=== PATIENT | male | born 1995 | race Caucasian/White ===

== ENCOUNTER 2017-12-31 01:44 | Inpatient (IN) | payer MEDICAID ==
[~2017-12-31] VITALS: Ht 167.6 cm; Wt 68.1 kg
[~2017-12-31 01:44] MED LIST: BLOO1EAC70 MC; FOLI1TAB16 PO; HUM7525 SQ; INSU100V36 SQ; LACT1CAP26 PO; LANC-509 TP; LANTUS SQ; LANTUS SUBCUT; MULT-1179 PO; ONDA8TAB6 PO; PANT40TA4 PO; THI100T PO; test
[2017-12-31] MEDS ORDERED: insulin glargine (Lantus) pen - multi-dose SQ ONE ×3 (02:30→21:00)
[2017-12-31 02:54] LABS: BASOPHILS % (AUTO) 0 % (0-1); EOSINOPHILS # (AUTO) 0.3 X10'3 (0-0.9); EOSINOPHILS % (AUTO) 1.4 % (0-6); HEMOGLOBIN 15.6 g/dl (14.0-17.9); LYMPHOCYTES # (AUTO) 1.7 X10'3 (1.1-4.8); LYMPHOCYTES % (AUTO) 9.4 % (21-51); MEAN CORPUSCULAR HEMOGLOBIN 28.1 PG (27.0-31.0); MEAN CORPUSCULAR HGB CONC 33.2 % (33.0-36.5); MEAN CORPUSCULAR VOLUME 84.5 FL (78-98); MEAN PLATELET VOLUME 9.5 FL (7.4-10.4); MONOCYTES # (AUTO) 0.6 X10'3 (0-0.9); MONOCYTES % (AUTO) 3.2 % (2-12); PLATELET COUNT 326 X10'3 (140-440); RED BLOOD COUNT 5.56 X10'6 (4.70-6.10); RED CELL DISTRIBUTION WIDTH 13.3 % (11.5-14.5); WHITE BLOOD COUNT 18.6 X10'3 (4.5-11.0)
[2017-12-31 03:12] LABS: ALANINE AMINOTRANSFERASE 37 U/L (12-78); ALBUMIN 4.9 G/DL (3.4-5.0); ALBUMIN/GLOBULIN RATIO 1.1 (1.1-1.5); ALKALINE PHOSPHATASE 125 IU/L (46-116); ANION GAP 24 (8-16); ASPARTATE AMINO TRANSFERASE 20 U/L (10-37); BILIRUBIN,TOTAL 1.1 MG/DL (0.1-1.0); BLOOD UREA NITROGEN 16 MG/DL (7-18); BUN/CREATININE RATIO 13.4 (5.4-32.0); CALCIUM 10.4 MG/DL (8.5-10.1); CHLORIDE 92 MMOL/L (99-107); CREATININE 1.19 MG/DL (0.60-1.10); GLUCOSE 377 MG/DL (70-104); SODIUM 132 MMOL/L (135-145); TOTAL CARBON DIOXIDE 16.3 MMOL/L (24-32); TOTAL PROTEIN 9.5 G/DL (6.4-8.2); eGFR 77 ML/MIN
[2017-12-31] MEDS ORDERED: normal saline 1000ML IV soln IVB ONE (03:30)
[2017-12-31] MEDS ORDERED: ondansetron/PF 4mg/2ml inj IV ONE ×2 (03:30→22:05)
[2017-12-31] MEDS ORDERED: insulin regular, human 10 units/0.1 ml syringe SQ ONE ×2 (03:30→05:55)
[2017-12-31] MEDS ORDERED: LANTUS SQ (04:08)
[2017-12-31 05:43] LABS: ALANINE AMINOTRANSFERASE 34 U/L (12-78); ALBUMIN 4.2 G/DL (3.4-5.0); ALBUMIN/GLOBULIN RATIO 0.9 (1.1-1.5); ALKALINE PHOSPHATASE 109 IU/L (46-116); ANION GAP 20 (8-16); ASPARTATE AMINO TRANSFERASE 16 U/L (10-37); BILIRUBIN,TOTAL 0.7 MG/DL (0.1-1.0); BLOOD UREA NITROGEN 15 MG/DL (7-18); BUN/CREATININE RATIO 14.4 (5.4-32.0); CALCIUM 8.9 MG/DL (8.5-10.1); CHLORIDE 100 MMOL/L (99-107); CREATININE 1.04 MG/DL (0.60-1.10); GLUCOSE 281 MG/DL (70-104); POTASSIUM 4.6 MMOL/L (3.5-5.1); SODIUM 137 MMOL/L (135-145); TOTAL CARBON DIOXIDE 16.8 MMOL/L (24-32); TOTAL PROTEIN 8.7 G/DL (6.4-8.2); eGFR 90 ML/MIN
[2017-12-31] MEDS ORDERED: normal saline 1000ml 1,000 ML IV ONE (05:56)
[2017-12-31] MEDS ORDERED: acetaminophen 325mg tablet PO PRN ×2 (06:25)
[2017-12-31] MEDS ORDERED: insulin regular, human vial - multi-dose SQ SCH (06:25)
[2017-12-31] MEDS ORDERED: MESSAGE TO PHARMACY PO ONE ×2 (06:25→16:05)
[2017-12-31] MEDS ORDERED: magnesium hydroxide 30ml (MOM) UD suspension PO PRN (06:25)
[2017-12-31] MEDS ORDERED: dextrose ORAL solution 15 GM/59 ML bottle PO PRN ×4 (06:25→16:05)
[2017-12-31] MEDS ORDERED: insulin Lispro (HumaLOG) vial - multi-dose SQ SCH (06:25)
[2017-12-31] MEDS ORDERED: glucagon, human recombinant 1mg kit SUBCUT PRN ×2 (06:25→16:05)
[2017-12-31] MEDS ORDERED: ondansetron/PF 4mg/2ml inj IV PRN (06:25)
[2017-12-31] MEDS ORDERED: normal saline 1000ml 1,000 ML IV SCH (06:25)
[2017-12-31] MEDS ORDERED: dextrose 50%-water 50ml dispensing syringe IV PRN ×4 (06:25→16:05)
[2017-12-31] MEDS ORDERED: mag hydrox/Alum hydrox/simeth 30ml oral suspension PO PRN (06:25)
[2017-12-31] MEDS: enoxaparin 40mg/0.4ml syringe SUBCUT SCH (07:36)
[2017-12-31] MEDS ORDERED: insulin glargine (Lantus) pen - multi-dose SQ SCH ×3 (08:00→21:00)
[2017-12-31] MEDS: ondansetron/PF 4mg/2ml inj IV PRN ×2 (08:25→19:20)
[2017-12-31 09:30] VITALS: BP 145/92
[2017-12-31] MEDS ORDERED: insulin regular, DKA only 100 UNIT in normal saline 100ml IV soln 99 ML IV SCH ×2 (09:50)
[2017-12-31] MEDS ORDERED: potassium CL 20mEq in D5-1/2NS 1,000 ML IV PRN (09:50)
[2017-12-31] MEDS ORDERED: potassium Cl 40MEQ/NS 500ml 500 ML IV PRN ×4 (09:50→09:55)
[2017-12-31] MEDS ORDERED: sodium phosphate inj. 15 MMOL in dextrose 5%-water 150 ML IV PRN (09:50)
[2017-12-31] MEDS ORDERED: potassium Cl 20 mEq SR tablet PO PRN ×4 (09:50→09:55)
[2017-12-31] MEDS ORDERED: sodium phosphate inj. 30 MMOL in dextrose 5%-water 250 ML IV PRN (09:50)
[2017-12-31] MEDS ORDERED: magnesium 4gm in 100ml NS 100 ML IV PRN (09:55)
[2017-12-31] MEDS ORDERED: magnesium 2GM in 50ml NS 50 ML IV PRN (09:55)
[2017-12-31] MEDS ORDERED: magnesium Cl slow-release 64mg tablet PO PRN (09:55)
[2017-12-31] MEDS ORDERED: CefTRIAXone/D5W-Rocephin 1gm 50 ML IV SCH (09:55)
[2017-12-31] MEDS: normal saline 1000ml 1,000 ML IV SCH ×2 (10:17→11:12)
[2017-12-31 10:31] LABS: ALBUMIN 4.2 G/DL (3.4-5.0); ANION GAP 18 (8-16); BLOOD UREA NITROGEN 13 MG/DL (7-18); BUN/CREATININE RATIO 14.9 (5.4-32.0); CALCIUM 9.4 MG/DL (8.5-10.1); CHLORIDE 101 MMOL/L (99-107); CREATININE 0.87 MG/DL (0.60-1.10); GLUCOSE 205 MG/DL (70-104); PHOSPHORUS 2.3 MG/DL (2.3-4.5); POTASSIUM 3.9 MMOL/L (3.5-5.1); SODIUM 137 MMOL/L (135-145); TOTAL CARBON DIOXIDE 17.8 MMOL/L (24-32); eGFR > 90 ML/MIN
[2017-12-31 11:00] VITALS: BP 148/95
[2017-12-31] MEDS: lisinopril 5mg tablet PO SCH (11:21)
[2017-12-31] MEDS: doxycycline hyclate 100mg tablet.DR PO SCH ×2 (11:21→17:18)
[2017-12-31] MEDS: pantoprazole 40 MG vial IV SCH (11:21)
[2017-12-31 15:00] VITALS: BP 132/78
[2017-12-31 15:01] LABS: ALBUMIN 3.9 G/DL (3.4-5.0); ANION GAP 16 (8-16); BLOOD UREA NITROGEN 11 MG/DL (7-18); BUN/CREATININE RATIO 13.1 (5.4-32.0); CHLORIDE 103 MMOL/L (99-107); CREATININE 0.84 MG/DL (0.60-1.10); GLUCOSE 183 MG/DL (70-104); PHOSPHORUS 2.2 MG/DL (2.3-4.5); POTASSIUM 4.1 MMOL/L (3.5-5.1); SODIUM 140 MMOL/L (135-145); TOTAL CARBON DIOXIDE 20.6 MMOL/L (24-32); eGFR > 90 ML/MIN
[2017-12-31] MEDS: insulin Lispro (HumaLOG) vial - multi-dose SQ SCH ×2 (16:14→18:49)
[2017-12-31] MEDS: potassium cl 20mEq in 1/2 NS 1,000 ML IV SCH (17:08)
[2017-12-31] MEDS: Neutra Phos packet PO PRN ×2 (17:19→22:15)
[2017-12-31 19:00] VITALS: BP 115/75
[2017-12-31] MEDS ORDERED: proCHLORperazine 10 MG/2 ml inj IV PRN (21:55)
[2017-12-31] MEDS ORDERED: ondansetron/PF 4mg/2ml inj IM ONE (21:55)
[2017-12-31 23:00] VITALS: BP 114/75
[2018-01-01] MEDS: potassium cl 20mEq in 1/2 NS 1,000 ML IV SCH ×2 (02:15→11:53)
[2018-01-01 03:00] VITALS: BP 123/81
[2018-01-01 05:22] LABS: BASOPHILS % (AUTO) 0.3 % (0-1); EOSINOPHILS # (AUTO) 0.2 X10'3 (0-0.9); EOSINOPHILS % (AUTO) 1.4 % (0-6); HEMATOCRIT 38.3 % (42.0-52.0); LYMPHOCYTES # (AUTO) 2.1 X10'3 (1.1-4.8); LYMPHOCYTES % (AUTO) 12.8 % (21-51); MEAN CORPUSCULAR HEMOGLOBIN 28.5 PG (27.0-31.0); MEAN CORPUSCULAR VOLUME 83.9 FL (78-98); MEAN PLATELET VOLUME 9.7 FL (7.4-10.4); MONOCYTES # (AUTO) 1.3 X10'3 (0-0.9); MONOCYTES % (AUTO) 7.8 % (2-12); NEUTROPHILS # (AUTO) 12.9 X10'3 (1.8-7.7); NEUTROPHILS % (AUTO) 77.7 % (42-75); PLATELET COUNT 254 X10'3 (140-440); RED BLOOD COUNT 4.57 X10'6 (4.70-6.10); RED CELL DISTRIBUTION WIDTH 13.3 % (11.5-14.5); WHITE BLOOD COUNT 16.6 X10'3 (4.5-11.0)
[2018-01-01 05:25] LABS: ALANINE AMINOTRANSFERASE 23 U/L (12-78); ALBUMIN 3.3 G/DL (3.4-5.0); ALKALINE PHOSPHATASE 85 IU/L (46-116); ANION GAP 10 (8-16); ASPARTATE AMINO TRANSFERASE 12 U/L (10-37); BILIRUBIN,TOTAL 0.9 MG/DL (0.1-1.0); BLOOD UREA NITROGEN 8 MG/DL (7-18); BUN/CREATININE RATIO 12.3 (5.4-32.0); CALCIUM 8.5 MG/DL (8.5-10.1); CHLORIDE 101 MMOL/L (99-107); CREATININE 0.65 MG/DL (0.60-1.10); GLUCOSE 158 MG/DL (70-104); MAGNESIUM 1.8 MG/DL (1.5-2.4); PHOSPHORUS 2.1 MG/DL (2.3-4.5); POTASSIUM 3.3 MMOL/L (3.5-5.1); SODIUM 136 MMOL/L (135-145); TOTAL CARBON DIOXIDE 24.6 MMOL/L (24-32); TOTAL PROTEIN 6.6 G/DL (6.4-8.2); eGFR > 90 ML/MIN
[2018-01-01 07:00] VITALS: BP 122/84
[2018-01-01] MEDS: lisinopril 5mg tablet PO SCH (07:20)
[2018-01-01] MEDS: pantoprazole 40 MG vial IV SCH (07:20)
[2018-01-01] MEDS: Neutra Phos packet PO PRN (07:21)
[2018-01-01] MEDS: doxycycline hyclate 100mg tablet.DR PO SCH (07:21)
[2018-01-01] MEDS: enoxaparin 40mg/0.4ml syringe SUBCUT SCH (07:29)
[2018-01-01] MEDS ORDERED: K and/or MAG REPLACEMENT MC SCH (08:00)
[2018-01-01] MEDS ORDERED: potassium phosphate inj 15 MMOL in normal saline 250ml IV soln 245 ML IV ONE (08:40)
[2018-01-01] MEDS: insulin Lispro (HumaLOG) vial - multi-dose SQ SCH ×2 (08:43→13:27)
[2018-01-01] MEDS ORDERED: NEUPHOSK PO (10:25)
[2018-01-01] MEDS ORDERED: LISI-604 PO (10:25)
[2018-01-01] MEDS ORDERED: DOXY-200 PO (10:25)
[2018-01-01] MEDS ORDERED: INSU100C10 SQ (10:25)
[2018-01-01 11:00] VITALS: BP 106/65
== END 2018-01-01 15:00 | disposition home or self-care (01) | DRG 420 ==
LOC: ER 01:45 → ED HOLD 06:25 → PCU 3S 09:28
PROVIDERS: ADMIT Internal Medicine; ATTEND Internal Medicine
DX: E10.10 Type 1 diabetes mellitus with ketoacidosis without coma (principal); E83.39 Other disorders of phosphorus metabolism; I10 Essential (primary) hypertension; E86.0 Dehydration; E87.6 Hypokalemia; K30 Functional dyspepsia; R00.0 Tachycardia, unspecified; K29.70 Gastritis, unspecified, without bleeding; F11.10 Opioid abuse, uncomplicated; J20.9 Acute bronchitis, unspecified; Z87.891 Personal history of nicotine dependence; Z88.0 Allergy status to penicillin; Z79.899 Other long term (current) drug therapy; Z91.14 Patient's other noncompliance with medication regimen; Z91.19 Patient's noncompliance with other medical treatment and regimen; Z56.0 Unemployment, unspecified
CPT/HCPCS: 36415; 80048; 80053; 82009; 82948; 83036; 83690; 83735; 84100; 85025; 87070; C9113; J1650; J1815; J2405; J7030

== ENCOUNTER 2018-03-13 23:35 | Inpatient (IN) | payer MEDICAID ==
[~2018-03-13] VITALS: Ht 170.2 cm; Wt 64.5 kg
[~2018-03-13 23:35] MED LIST changes: +DOXY-200 PO; -FOLI1TAB16 PO; -HUM7525 SQ; +INSU100C10 SQ; -INSU100V36 SQ; -LACT1CAP26 PO; -LANTUS SUBCUT; +LISI-604 PO; -MULT-1179 PO; +NEUPHOSK PO; -ONDA8TAB6 PO; -PANT40TA4 PO; -THI100T PO; -test
[2018-03-14] MEDS ORDERED: insulin regular, human 10 units/0.1 ml syringe IV ONE (00:05)
[2018-03-14] MEDS ORDERED: normal saline 1000ML IV soln IVB ONE (00:05)
[2018-03-14 00:10] LABS: BASOPHILS # (AUTO) 0.1 X10'3 (0-0.2); BASOPHILS % (AUTO) 0.5 % (0-1); EOSINOPHILS # (AUTO) 0.2 X10'3 (0-0.9); EOSINOPHILS % (AUTO) 1.3 % (0-6); HEMATOCRIT 43.7 % (42.0-52.0); HEMOGLOBIN 14.9 g/dl (14.0-17.9); LYMPHOCYTES # (AUTO) 3.6 X10'3 (1.1-4.8); LYMPHOCYTES % (AUTO) 30.9 % (21-51); MEAN CORPUSCULAR HEMOGLOBIN 28.9 PG (27.0-31.0); MEAN CORPUSCULAR VOLUME 84.8 FL (78-98); MONOCYTES # (AUTO) 0.6 X10'3 (0-0.9); MONOCYTES % (AUTO) 5.4 % (2-12); NEUTROPHILS # (AUTO) 7.2 X10'3 (1.8-7.7); NEUTROPHILS % (AUTO) 61.9 % (42-75); PLATELET COUNT 309 X10'3 (140-440); RED BLOOD COUNT 5.16 X10'6 (4.70-6.10); WHITE BLOOD COUNT 11.7 X10'3 (4.5-11.0)
[2018-03-14 00:25] LABS: ALANINE AMINOTRANSFERASE 21 U/L (12-78); ALBUMIN 4.4 G/DL (3.4-5.0); ALBUMIN/GLOBULIN RATIO 1.1 (1.1-1.5); ALKALINE PHOSPHATASE 130 IU/L (46-116); ANION GAP 22 (8-16); ASPARTATE AMINO TRANSFERASE 14 U/L (10-37); BILIRUBIN,TOTAL 1.4 MG/DL (0.1-1.0); BLOOD UREA NITROGEN 22 MG/DL (7-18); BUN/CREATININE RATIO 21.8 (5.4-32.0); CHLORIDE 93 MMOL/L (99-107); CREATININE 1.01 MG/DL (0.60-1.10); GLUCOSE 319 MG/DL (70-104); POTASSIUM 4.1 MMOL/L (3.5-5.1); SODIUM 133 MMOL/L (135-145); TOTAL CARBON DIOXIDE 18.4 MMOL/L (24-32); TOTAL PROTEIN 8.3 G/DL (6.4-8.2); eGFR > 90 ML/MIN
[2018-03-14 00:28] LABS: CLARITY,URINE CLEAR (Clear); COLOR,URINE YELLOW (Yellow); GLUCOSE, URINE 500 mg/dl (Neg); KETONES,URINE >=80 mg/dl (Neg); LEUKOCYTE ESTERASE ,URINE NEGATIVE (Neg); NITRITES, URINE NEGATIVE (Neg); OCCULT BLOOD,URINE NEGATIVE (Neg); PROTEIN,URINE TRACE mg/dl (Neg); UROBILINOGEN,URINE 0.2 E.U/dL (0.2-1.0)
[2018-03-14 00:30] LABS: UA COLLECTION TYPE CLN CATCH MIDSTREAM
[2018-03-14 00:34] LABS: BACTERIA,URINE NONE SEEN /HPF (Neg); RBC,URINE 0-2 /HPF (0-2); SQUAMOUS EPITHELIAL CELL,UR FEW /LPF (FEW); WBC,URINE NONE SEEN /HPF (0-4)
[2018-03-14 00:36] LABS: MAGNESIUM 1.7 MG/DL (1.5-2.4); PHOSPHORUS 4.6 MG/DL (2.3-4.5)
[2018-03-14 00:40] LABS: PROTHROMBIN TIME 10.7 SECONDS (9.0-12.0)
[2018-03-14 01:15] LABS: ABG BASE EXCESS -6.9 mmol/L (-2.0-3.0); ABG HCO3 18.2 mmol/L (22.0-26.0); ABG OXYGEN SATURATION 92.2 % (95-98); ABG PCO2 (T) 34.9 mmHg (35.0-48.0); ABG PH (T) 7.334 (7.350-7.450); ABG PO2 (T) 63.5 mmHg (83-108); ALLEN'S TEST Positive; FCOHb 1.6 % (0.5-1.5); FMetHb 0.3 % (0.3-1.12); FO2Hb 90.4 % (94-100); PATIENT TEMPERATURE 36.6
[2018-03-14] MEDS ORDERED: normal saline 1000ml 1,000 ML IV SCH (01:42)
[2018-03-14] MEDS ORDERED: dextrose 5%-1/2 normal saline 1,000 ML IV SCH (01:42)
[2018-03-14] MEDS ORDERED: metoclopramide 5 mg/ml inj IV PRN (01:45)
[2018-03-14] MEDS ORDERED: acetaminophen 325mg tablet PO PRN (01:45)
[2018-03-14] MEDS ORDERED: magnesium hydroxide 30ml (MOM) UD suspension PO PRN (01:45)
[2018-03-14] MEDS ORDERED: ondansetron/PF 4mg/2ml inj IV PRN (01:45)
[2018-03-14] MEDS ORDERED: mag hydrox/Alum hydrox/simeth 30ml oral suspension PO PRN (01:45)
[2018-03-14 01:48] LABS: URINE AMPHETAMINE SCREEN POSITIVE (Neg); URINE BARBITUATE SCREEN NEGATIVE (Neg); URINE BENZODIAZEPINES SCREEN NEGATIVE (Neg); URINE CANNABINOID SCREEN POSITIVE (Neg); URINE COCAINE SCREEN NEGATIVE (Neg); URINE METHADONE SCREEN NEGATIVE (Neg); URINE OPIATE SCREEN POSITIVE (Neg); URINE PHENCYCLIDINE SCREEN NEGATIVE (Neg)
[2018-03-14] MEDS ORDERED: dextrose 50%-water 50ml dispensing syringe IV PRN (01:50)
[2018-03-14] MEDS ORDERED: insulin regular, human 100 UNIT in normal saline 100ml IV soln 99 ML IV SCH ×2 (01:50)
[2018-03-14] MEDS ORDERED: insulin R INFUSION 1 ML IV ONE (02:27)
[2018-03-14 02:30] LABS: ALBUMIN 3.7 G/DL (3.4-5.0); ANION GAP 13 (8-16); BLOOD UREA NITROGEN 22 MG/DL (7-18); BUN/CREATININE RATIO 25.6 (5.4-32.0); CHLORIDE 101 MMOL/L (99-107); CREATININE 0.86 MG/DL (0.60-1.10); GLUCOSE 195 MG/DL (70-104); POTASSIUM 3.8 MMOL/L (3.5-5.1); SODIUM 137 MMOL/L (135-145); TOTAL CARBON DIOXIDE 22.7 MMOL/L (24-32); eGFR > 90 ML/MIN
[2018-03-14] MEDS ORDERED: insulin regular, DKA only 100 UNIT in normal saline 100ml IV soln 99 ML IV SCH ×2 (02:48)
[2018-03-14 03:15] VITALS: BP 120/69
[2018-03-14 05:58] LABS: ALBUMIN 3.4 G/DL (3.4-5.0); ANION GAP 13 (8-16); BLOOD UREA NITROGEN 20 MG/DL (7-18); CALCIUM 8.4 MG/DL (8.5-10.1); CHLORIDE 101 MMOL/L (99-107); GLUCOSE 197 MG/DL (70-104); POTASSIUM 3.7 MMOL/L (3.5-5.1); SODIUM 136 MMOL/L (135-145); TOTAL CARBON DIOXIDE 21.9 MMOL/L (24-32); eGFR > 90 ML/MIN
[2018-03-14 06:00] VITALS: BP 129/90
== END 2018-03-14 08:13 | disposition left against medical advice (07) | DRG 420 ==
LOC: ER 23:35 → ED HOLD 03-14 01:42 → CMPBEDREQ 03-14 03:00 → PCU 3S 03-14 03:13
PROVIDERS: ADMIT Internal Medicine; ATTEND Family Medicine
DX: E11.10 Type 2 diabetes mellitus with ketoacidosis without coma (principal); E86.0 Dehydration; F17.210 Nicotine dependence, cigarettes, uncomplicated; Z53.21 Procedure and treatment not carried out due to patient leaving prior to being seen by health care provider; F19.10 Other psychoactive substance abuse, uncomplicated; Z88.0 Allergy status to penicillin; Z91.14 Patient's other noncompliance with medication regimen
CPT/HCPCS: 36415; 36600; 80048; 80053; 80305; 81001; 82009; 82803; 82948; 83735; 84100; 85018; 85025; 85610; 87070; 96361; 96374; 99285; J1815; J7030

== ENCOUNTER 2018-06-12 23:29 | Inpatient (IN) | payer MEDICAID ==
[~2018-06-12] VITALS: Ht 167.6 cm; Wt 68.2 kg
[~2018-06-12 23:29] MED LIST changes: -BLOO1EAC70 MC; -DOXY-200 PO; -LANC-509 TP; -LISI-604 PO; -NEUPHOSK PO
[2018-06-12] MEDS ORDERED: normal saline 1000ML IV soln IVB ONE ×2 (23:35→23:40)
[2018-06-12] MEDS ORDERED: HYDROmorphone 1 mg/ml syringe IM ONE (23:35)
[2018-06-12] MEDS ORDERED: insulin regular, human 100 UNIT in normal saline 100ml IV soln 100 ML IV PRN ×2 (23:35)
[2018-06-12] MEDS ORDERED: normal saline 1000ml 1,000 ML IV ONE (23:37)
[2018-06-12] MEDS ORDERED: insulin regular, human 10 units/0.1 ml syringe IV ONE (23:40)
[2018-06-12 23:51] LABS: BASOPHILS % (AUTO) 0.1 % (0-1); EOSINOPHILS % (AUTO) 0 % (0-6); HEMATOCRIT 56.7 % (42.0-52.0); LYMPHOCYTES # (AUTO) 2.4 X10'3 (1.1-4.8); LYMPHOCYTES % (AUTO) 10.2 % (21-51); MEAN CORPUSCULAR HEMOGLOBIN 29.7 PG (27.0-31.0); MEAN CORPUSCULAR HGB CONC 32.2 % (33.0-36.5); MEAN CORPUSCULAR VOLUME 92.2 FL (78-98); MEAN PLATELET VOLUME 9.4 FL (7.4-10.4); MONOCYTES # (AUTO) 0.8 X10'3 (0-0.9); MONOCYTES % (AUTO) 3.6 % (2-12); NEUTROPHILS # (AUTO) 20.2 X10'3 (1.8-7.7); NEUTROPHILS % (AUTO) 86.1 % (42-75); PLATELET COUNT 569 X10'3 (140-440); RED BLOOD COUNT 6.14 X10'6 (4.70-6.10); RED CELL DISTRIBUTION WIDTH 14.7 % (11.5-14.5); WHITE BLOOD COUNT 23.5 X10'3 (4.5-11.0)
[2018-06-12 23:56] LABS: HEMOGLOBIN 18.3 g/dl (14.0-17.9)
[2018-06-13] MEDS ORDERED: normal saline 1000ml 1,000 ML IV SCH ×2 (00:01→01:30)
[2018-06-13 00:03] LABS: ALANINE AMINOTRANSFERASE 20 U/L (12-78); ALBUMIN/GLOBULIN RATIO 1.3 (1.1-1.5); ALKALINE PHOSPHATASE 121 IU/L (46-116); ANION GAP 36 (8-16); ASPARTATE AMINO TRANSFERASE 12 U/L (10-37); BILIRUBIN,TOTAL 0.9 MG/DL (0.1-1.0); BLOOD UREA NITROGEN 27 MG/DL (7-18); BUN/CREATININE RATIO 18.5 (5.4-32.0); CHLORIDE 87 MMOL/L (99-107); CREATININE 1.46 MG/DL (0.60-1.10); MAGNESIUM 2.2 MG/DL (1.5-2.4); PHOSPHORUS 7.1 MG/DL (2.3-4.5); POTASSIUM 4.7 MMOL/L (3.5-5.1); SODIUM 130 MMOL/L (135-145); TOTAL PROTEIN 8.9 G/DL (6.4-8.2); eGFR 60 ML/MIN
[2018-06-13] MEDS ORDERED: HYDROcodone/acetaminophen 10/325mg tab PO PRN (00:05)
[2018-06-13] MEDS ORDERED: metoclopramide 5 mg/ml inj IV PRN (00:05)
[2018-06-13] MEDS ORDERED: HYDROcodone/acetaminophen 5mg/325mg tablet PO PRN (00:05)
[2018-06-13] MEDS ORDERED: acetaminophen 650mg rectal suppository RC PRN (00:05)
[2018-06-13] MEDS ORDERED: ondansetron/PF 4mg/2ml inj IV PRN (00:05)
[2018-06-13] MEDS ORDERED: morphine 2 MG/ML inj. syringe IV PRN ×2 (00:05)
[2018-06-13] MEDS ORDERED: acetaminophen 325mg tablet PO PRN ×2 (00:05)
[2018-06-13] MEDS ORDERED: mag hydrox/Alum hydrox/simeth 30ml oral suspension PO PRN (00:05)
[2018-06-13] MEDS ORDERED: diphenhydrAMINE 25mg capsule PO PRN (00:05)
[2018-06-13] MEDS ORDERED: magnesium hydroxide 30ml (MOM) UD suspension PO PRN (00:05)
[2018-06-13] MEDS ORDERED: diphenhydrAMINE 50 mg/ml inj IV PRN (00:05)
[2018-06-13] MEDS ORDERED: HYDROmorphone 1 mg/ml syringe IV PRN ×2 (00:05)
[2018-06-13 00:15] LABS: ETHANOL < 0.010 GM/DL (0.0-0.010)
[2018-06-13 00:17] LABS: GLUCOSE 491 MG/DL (70-104); TOTAL CARBON DIOXIDE 6.6 MMOL/L (24-32)
[2018-06-13 00:18] LABS: OSMOLALITY 333 MOSM/K (280-300)
[2018-06-13] MEDS ORDERED: normal saline 1000ML IV soln IVB ONE (00:40)
[2018-06-13 00:47] LABS: HEMOGLOBIN A1C 9.4 % (4.5-6.2)
[2018-06-13] MEDS ORDERED: ondansetron/PF 4mg/2ml inj IV ONE (00:50)
[2018-06-13 00:53] LABS: LIPASE < 50 U/L (73-393); TROPONIN I < 0.04 NG/ML (0.0-0.05)
[2018-06-13] MEDS ORDERED: insulin regular, DKA only 100 UNIT in normal saline 100ml IV soln 99 ML IV SCH ×2 (01:30)
[2018-06-13] MEDS: normal saline 1000ml 1,000 ML IV SCH ×2 (01:30→02:00)
[2018-06-13] MEDS ORDERED: potassium Cl 40MEQ/NS 500ml 500 ML IV PRN ×2 (01:30)
[2018-06-13] MEDS ORDERED: Neutra Phos packet PO PRN (01:30)
[2018-06-13] MEDS ORDERED: sodium phosphate inj. 30 MMOL in dextrose 5%-water 250 ML IV PRN (01:30)
[2018-06-13] MEDS ORDERED: potassium Cl 20 mEq SR tablet PO PRN ×2 (01:30)
[2018-06-13] MEDS ORDERED: sodium phosphate inj. 15 MMOL in dextrose 5%-water 150 ML IV PRN (01:30)
[2018-06-13 02:00] VITALS: BP 151/114
[2018-06-13 02:01] LABS: CLARITY,URINE CLEAR (Clear); COLOR,URINE STRAW (Yellow); GLUCOSE, URINE 500 mg/dl (Neg); KETONES,URINE >=80 mg/dl (Neg); LEUKOCYTE ESTERASE ,URINE NEGATIVE (Neg); NITRITES, URINE NEGATIVE (Neg); OCCULT BLOOD,URINE LARGE (Neg); PH,URINE 5.5 (4.8-8.0); PROTEIN,URINE NEGATIVE (Neg); URINE AMPHETAMINE SCREEN NEGATIVE (Neg); URINE BARBITUATE SCREEN NEGATIVE (Neg); URINE BENZODIAZEPINES SCREEN NEGATIVE (Neg); URINE CANNABINOID SCREEN POSITIVE (Neg); URINE COCAINE SCREEN NEGATIVE (Neg); URINE METHADONE SCREEN NEGATIVE (Neg); URINE OPIATE SCREEN POSITIVE (Neg); URINE PHENCYCLIDINE SCREEN NEGATIVE (Neg); UROBILINOGEN,URINE 0.2 E.U/dL (0.2-1.0)
[2018-06-13 02:10] LABS: UA COLLECTION TYPE CLN CATCH MIDSTREAM
[2018-06-13 02:12] LABS: BACTERIA,URINE NONE SEEN /HPF (Neg); SQUAMOUS EPITHELIAL CELL,UR NONE SEEN /LPF (FEW); WBC,URINE 0-4 /HPF (0-4)
[2018-06-13] MEDS ORDERED: insulin regular, human 100 UNIT in normal saline 100ml IV soln 100 ML IV SCH ×2 (02:27)
[2018-06-13 02:30] LABS: ANION GAP 27 (8-16); BLOOD UREA NITROGEN 24 MG/DL (7-18); BUN/CREATININE RATIO 19.5 (5.4-32.0); CHLORIDE 99 MMOL/L (99-107); CREATININE 1.23 MG/DL (0.60-1.10); GLUCOSE 261 MG/DL (70-104); POTASSIUM 3.8 MMOL/L (3.5-5.1); SODIUM 138 MMOL/L (135-145); eGFR 74 ML/MIN
[2018-06-13] MEDS: potassium CL 20mEq in D5-1/2NS 1,000 ML IV PRN ×2 (03:13→12:12)
[2018-06-13 06:00] VITALS: BP 141/100
[2018-06-13 06:05] LABS: ALBUMIN 3.8 G/DL (3.4-5.0); ANION GAP 22 (8-16); BLOOD UREA NITROGEN 24 MG/DL (7-18); CALCIUM 8.4 MG/DL (8.5-10.1); CHLORIDE 100 MMOL/L (99-107); GLUCOSE 217 MG/DL (70-104); PHOSPHORUS 1.9 MG/DL (2.3-4.5); SODIUM 137 MMOL/L (135-145); eGFR > 90 ML/MIN
[2018-06-13 06:32] LABS: TOTAL CARBON DIOXIDE 14.8 MMOL/L (24-32)
[2018-06-13] MEDS ORDERED: levoFLOXACIN-Levaquin 500mg/D5 100 ML IV SCH (08:00)
[2018-06-13] MEDS ORDERED: heparin, porcine 5000 units/ml vial SQ SCH (08:00)
[2018-06-13] MEDS ORDERED: K and/or MAG REPLACEMENT MC SCH (08:00)
[2018-06-13] MEDS ORDERED: piperacillin-tazo 2.25gm/50ml 50 ML IV SCH (08:00)
[2018-06-13] MEDS ORDERED: pantoprazole 40 MG vial IV SCH (08:00)
[2018-06-13] MEDS ORDERED: docusate sod 100mg capsule PO SCH (08:00)
[2018-06-13] MEDS ORDERED: pneumococcal 23-VAL P-sac vacc 25 mcg/0.5ml vial IMVAC ONE (10:00)
[2018-06-13 11:00] VITALS: BP 120/83
[2018-06-13 11:31] LABS: ALANINE AMINOTRANSFERASE 17 U/L (12-78); ALBUMIN 3.6 G/DL (3.4-5.0); ALBUMIN/GLOBULIN RATIO 1.2 (1.1-1.5); ALKALINE PHOSPHATASE 88 IU/L (46-116); ANION GAP 14 (8-16); ASPARTATE AMINO TRANSFERASE 10 U/L (10-37); BILIRUBIN,TOTAL 0.7 MG/DL (0.1-1.0); BLOOD UREA NITROGEN 22 MG/DL (7-18); BUN/CREATININE RATIO 22.2 (5.4-32.0); CALCIUM 8.3 MG/DL (8.5-10.1); CHLORIDE 101 MMOL/L (99-107); CREATININE 0.99 MG/DL (0.60-1.10); GLUCOSE 126 MG/DL (70-104); SODIUM 137 MMOL/L (135-145); TOTAL CARBON DIOXIDE 22.5 MMOL/L (24-32); TOTAL PROTEIN 6.5 G/DL (6.4-8.2); eGFR > 90 ML/MIN
[2018-06-13 11:35] LABS: POTASSIUM 3.7 MMOL/L (3.5-5.1)
[2018-06-13] MEDS ORDERED: LORazepam 2 mg/ml vial IV PRN (11:50)
[2018-06-13] MEDS ORDERED: insulin glargine (Lantus) pen - multi-dose SQ ONE (11:50)
[2018-06-13 11:54] LABS: BASOPHILS % (AUTO) 0.2 % (0-1); EOSINOPHILS # (AUTO) 0.2 X10'3 (0-0.9); HEMATOCRIT 45.7 % (42.0-52.0); HEMOGLOBIN 15.3 g/dl (14.0-17.9); LYMPHOCYTES # (AUTO) 2.6 X10'3 (1.1-4.8); LYMPHOCYTES % (AUTO) 12.9 % (21-51); MEAN CORPUSCULAR HEMOGLOBIN 30.4 PG (27.0-31.0); MEAN CORPUSCULAR HGB CONC 33.5 % (33.0-36.5); MEAN PLATELET VOLUME 8.7 FL (7.4-10.4); MONOCYTES # (AUTO) 1.3 X10'3 (0-0.9); MONOCYTES % (AUTO) 6.3 % (2-12); NEUTROPHILS # (AUTO) 16.2 X10'3 (1.8-7.7); NEUTROPHILS % (AUTO) 79.6 % (42-75); PLATELET COUNT 444 X10'3 (140-440); RED BLOOD COUNT 5.02 X10'6 (4.70-6.10); RED CELL DISTRIBUTION WIDTH 14.3 % (11.5-14.5); WHITE BLOOD COUNT 20.4 X10'3 (4.5-11.0)
[2018-06-13] MEDS ORDERED: dextrose ORAL solution 15 GM/59 ML bottle PO PRN ×2 (11:55)
[2018-06-13] MEDS ORDERED: glucagon, human recombinant 1mg kit SUBCUT PRN (11:55)
[2018-06-13] MEDS ORDERED: dextrose 50%-water 50ml dispensing syringe IV PRN ×2 (11:55)
[2018-06-13] MEDS ORDERED: diatrozoate meglu/diatrozoate sod (37% iodine) 120ML oral solution ONE (12:17)
[2018-06-13 15:00] VITALS: BP 105/66
[2018-06-13] MEDS: insulin Lispro (HumaLOG) vial - multi-dose SQ SCH ×3 (15:14→19:15)
[2018-06-13] MEDS ORDERED: metroNIDAZOLE-Flagyl 500mg/NS 100 ML IV SCH (16:00)
[2018-06-13 19:00] VITALS: BP 107/71
[2018-06-13] MEDS ORDERED: temazepam 15mg capsule PO PRN (21:00)
== END 2018-06-13 20:40 | disposition left against medical advice (07) | DRG 720 ==
LOC: ER 23:30 → ED HOLD 06-13 00:01 → PCU 3S 06-13 01:48
PROVIDERS: ADMIT Family Medicine; ATTEND Family Medicine
PROC: 3E02340 Introduction of Influenza Vaccine into Muscle, Percutaneous Approach (ICD-10-PCS; principal; 2018-06-13)
PROC: BD11YZZ Fluoroscopy of Esophagus using Other Contrast (ICD-10-PCS; 2018-06-13)
DX: A41.9 Sepsis, unspecified organism (principal); K22.3 Perforation of esophagus; E10.10 Type 1 diabetes mellitus with ketoacidosis without coma; J98.2 Interstitial emphysema; J93.9 Pneumothorax, unspecified; Z53.21 Procedure and treatment not carried out due to patient leaving prior to being seen by health care provider; F11.23 Opioid dependence with withdrawal; I10 Essential (primary) hypertension; Z23 Encounter for immunization; Z88.0 Allergy status to penicillin; Z79.4 Long term (current) use of insulin
CPT/HCPCS: 36415; 71045; 71250; 74176; 74220; 80048; 80053; 80305; 80320; 81001; 82800; 82948; 83036; 83605; 83690; 83735; 83880; 83930; 84100; 84484; 85025; 87040; 87070; 93005; 93308; 96361; 96372; 96374; 99291; C9113; J1170; J1644; J1815; J1956; J2060; J2405; J3490; J7030; Q2037; Q9963

== ENCOUNTER 2018-06-20 13:56 | Inpatient (IN) | payer MEDICAID ==
[~2018-06-20] VITALS: Ht 170.2 cm; Wt 60.0 kg
[2018-06-20] MEDS ORDERED: potassium CL 20mEq in D5-1/2NS 1,000 ML IV PRN (14:29)
[2018-06-20] MEDS ORDERED: sodium bicarbonate (8.4%) inj. 100 MEQ in dextrose 5% water 500ml 500 ML IV PRN (14:29)
[2018-06-20] MEDS ORDERED: normal saline 1000ml 1,000 ML IV SCH (14:29)
[2018-06-20] MEDS ORDERED: sodium bicarbonate (8.4%) inj. 50 MEQ in dextrose 5% water 500ml 250 ML IV PRN (14:29)
[2018-06-20] MEDS ORDERED: sodium phosphate inj. 30 MMOL in dextrose 5%-water 250 ML IV PRN (14:30)
[2018-06-20] MEDS ORDERED: sodium phosphate inj. 15 MMOL in dextrose 5%-water 150 ML IV PRN (14:30)
[2018-06-20] MEDS ORDERED: insulin regular, human vial - multi-dose IV PRN ×2 (14:30→15:30)
[2018-06-20] MEDS ORDERED: potassium Cl 40MEQ/NS 500ml 500 ML IV PRN ×6 (14:30→15:30)
[2018-06-20] MEDS ORDERED: potassium Cl 20 mEq SR tablet PO PRN ×6 (14:30→15:30)
[2018-06-20] MEDS ORDERED: Neutra Phos packet PO PRN (14:30)
[2018-06-20] MEDS ORDERED: K and/or MAG REPLACEMENT MC SCH (14:30)
[2018-06-20] MEDS ORDERED: normal saline 1000ml 1,000 ML IV ONE (14:35)
[2018-06-20 14:43] LABS: CLARITY,URINE CLEAR (Clear); COLOR,URINE YELLOW (Yellow); GLUCOSE, URINE >=1000 mg/dl (Neg); KETONES,URINE >=80 mg/dl (Neg); LEUKOCYTE ESTERASE ,URINE NEGATIVE (Neg); NITRITES, URINE NEGATIVE (Neg); OCCULT BLOOD,URINE MODERATE (Neg); PH,URINE 5.5 (4.8-8.0); PROTEIN,URINE TRACE mg/dl (Neg); UROBILINOGEN,URINE 0.2 E.U/dL (0.2-1.0)
[2018-06-20] MEDS ORDERED: HYDROmorphone 1 mg/ml syringe IV ONE (14:45)
[2018-06-20] MEDS ORDERED: insulin regular, human 10 units/0.1 ml syringe IV PRN (14:48)
[2018-06-20 14:50] LABS: BASOPHILS % (AUTO) 0 % (0-1); EOSINOPHILS % (AUTO) 0 % (0-6); HEMATOCRIT 47.6 % (42.0-52.0); HEMOGLOBIN 15.4 g/dl (14.0-17.9); LYMPHOCYTES # (AUTO) 3.6 X10'3 (1.1-4.8); LYMPHOCYTES % (AUTO) 9.4 % (21-51); MEAN CORPUSCULAR HEMOGLOBIN 30.3 PG (27.0-31.0); MEAN CORPUSCULAR HGB CONC 32.2 % (33.0-36.5); MEAN CORPUSCULAR VOLUME 94.1 FL (78-98); MEAN PLATELET VOLUME 10.1 FL (7.4-10.4); MONOCYTES # (AUTO) 1.5 X10'3 (0-0.9); MONOCYTES % (AUTO) 3.9 % (2-12); NEUTROPHILS # (AUTO) 33.4 X10'3 (1.8-7.7); NEUTROPHILS % (AUTO) 86.7 % (42-75); PLATELET COUNT 442 X10'3 (140-440); RED BLOOD COUNT 5.06 X10'6 (4.70-6.10); RED CELL DISTRIBUTION WIDTH 14.3 % (11.5-14.5)
[2018-06-20 14:52] LABS: WHITE BLOOD COUNT 38.5 X10'3 (4.5-11.0)
[2018-06-20 14:53] LABS: UA COLLECTION TYPE CLN CATCH MIDSTREAM
[2018-06-20 14:54] LABS: BACTERIA,URINE NONE SEEN /HPF (Neg); MUCUS STRANDS FEW /LPF (Neg); SQUAMOUS EPITHELIAL CELL,UR FEW /LPF (FEW); WBC,URINE 0-4 /HPF (0-4)
[2018-06-20] MEDS: normal saline 1000ml 1,000 ML IV SCH ×6 (14:59→22:10)
[2018-06-20 15:05] LABS: ALANINE AMINOTRANSFERASE 25 U/L (12-78); ALBUMIN 4.1 G/DL (3.4-5.0); ALBUMIN/GLOBULIN RATIO 1.2 (1.1-1.5); ALKALINE PHOSPHATASE 143 IU/L (46-116); ASPARTATE AMINO TRANSFERASE 23 U/L (10-37); BILIRUBIN,DIRECT 0.2 MG/DL (0-0.3); BILIRUBIN,TOTAL 0.6 MG/DL (0.1-1.0); BLOOD UREA NITROGEN 24 MG/DL (7-18); BUN/CREATININE RATIO 17.1 (5.4-32.0); CALCIUM 9.1 MG/DL (8.5-10.1); CHLORIDE 92 MMOL/L (99-107); ETHANOL < 0.010 GM/DL (0.0-0.010); MAGNESIUM 2.7 MG/DL (1.5-2.4); PHOSPHORUS 7.2 MG/DL (2.3-4.5); SODIUM 134 MMOL/L (135-145); TOTAL PROTEIN 7.5 G/DL (6.4-8.2); eGFR 63 ML/MIN
[2018-06-20 15:07] LABS: ANION GAP 37 (8-16)
[2018-06-20] MEDS: insulin regular, DKA only 100 UNIT in normal saline 100ml IV soln 99 ML IV SCH ×2 (15:07)
[2018-06-20 15:09] LABS: GLUCOSE 664 MG/DL (70-104)
[2018-06-20 15:10] LABS: POTASSIUM 6.1 MMOL/L (3.5-5.1); TOTAL CARBON DIOXIDE < 5 MMOL/L (24-32)
[2018-06-20] MEDS ORDERED: ondansetron/PF 4mg/2ml inj IV PRN (15:30)
[2018-06-20] MEDS ORDERED: HYDROcodone/acetaminophen 10/325mg tab PO PRN (15:30)
[2018-06-20] MEDS ORDERED: insulin regular, DKA only 100 UNIT in normal saline 100ml IV soln 99 ML IV SCH ×2 (15:30)
[2018-06-20] MEDS ORDERED: acetaminophen 325mg tablet PO PRN ×2 (15:30)
[2018-06-20] MEDS ORDERED: morphine 4 MG/ML inj SYRINge IV PRN (15:30)
[2018-06-20] MEDS ORDERED: morphine 2 MG/ML inj. syringe IV PRN (15:30)
[2018-06-20] MEDS ORDERED: dextrose 50%-water 50ml dispensing syringe IV PRN ×2 (15:40)
[2018-06-20] MEDS ORDERED: insulin Lispro (HumaLOG) vial - multi-dose SQ SCH (15:40)
[2018-06-20] MEDS ORDERED: MESSAGE TO PHARMACY PO ONE (15:40)
[2018-06-20] MEDS ORDERED: glucagon, human recombinant 1mg kit SUBCUT PRN (15:40)
[2018-06-20] MEDS ORDERED: dextrose ORAL solution 15 GM/59 ML bottle PO PRN ×2 (15:40)
[2018-06-20 15:54] LABS: URINE AMPHETAMINE SCREEN NEGATIVE (Neg); URINE BARBITUATE SCREEN NEGATIVE (Neg); URINE BENZODIAZEPINES SCREEN NEGATIVE (Neg); URINE CANNABINOID SCREEN POSITIVE (Neg); URINE COCAINE SCREEN NEGATIVE (Neg); URINE METHADONE SCREEN NEGATIVE (Neg); URINE OPIATE SCREEN POSITIVE (Neg); URINE PHENCYCLIDINE SCREEN NEGATIVE (Neg)
[2018-06-20 16:34] LABS: TOTAL CELLS COUNTED 100
[2018-06-20 16:36] LABS: PLATELET ESTIMATE INCREASED
[2018-06-20 16:37] LABS: BURR CELLS 1+; POIKILOCYTOSIS 1+; SCHISTOCYTES 1+
[2018-06-20 16:38] LABS: POLYCHROMASIA FEW
[2018-06-20 16:40] VITALS: BP 141/81
[2018-06-20 16:41] LABS: SMUDGE CELLS 1+
[2018-06-20 19:00] VITALS: BP 140/91
[2018-06-20] MEDS: docusate sod 100mg capsule PO SCH (19:52)
[2018-06-20 20:00] VITALS: BP 144/98
[2018-06-20] MEDS ORDERED: insulin glargine (Lantus) pen - multi-dose SQ SCH ×2 (20:00→21:00)
[2018-06-20 20:16] LABS: ALBUMIN 3.5 G/DL (3.4-5.0); ANION GAP 26 (8-16); BLOOD UREA NITROGEN 16 MG/DL (7-18); BUN/CREATININE RATIO 17.2 (5.4-32.0); CALCIUM 7.8 MG/DL (8.5-10.1); CHLORIDE 105 MMOL/L (99-107); CREATININE 0.93 MG/DL (0.60-1.10); GLUCOSE 206 MG/DL (70-104); PHOSPHORUS 1.8 MG/DL (2.3-4.5); POTASSIUM 4.5 MMOL/L (3.5-5.1); SODIUM 140 MMOL/L (135-145); eGFR > 90 ML/MIN
[2018-06-20 20:21] LABS: TOTAL CARBON DIOXIDE 9.1 MMOL/L (24-32)
[2018-06-20] MEDS: heparin, porcine 5000 units/ml vial SQ SCH (20:54)
[2018-06-20] MEDS: dextrose 5%-1/2 normal saline 1,000 ML IV SCH (20:54)
[2018-06-20] MEDS ORDERED: insulin glargine (Lantus) pen - multi-dose SQ ONE (20:55)
[2018-06-20 21:00] VITALS: BP 149/100
[2018-06-20 22:00] VITALS: BP 147/102
[2018-06-20 22:58] LABS: ALBUMIN 3.5 G/DL (3.4-5.0); ANION GAP 19 (8-16); BLOOD UREA NITROGEN 15 MG/DL (7-18); BUN/CREATININE RATIO 16.3 (5.4-32.0); CALCIUM 8.3 MG/DL (8.5-10.1); CHLORIDE 105 MMOL/L (99-107); CREATININE 0.92 MG/DL (0.60-1.10); GLUCOSE 157 MG/DL (70-104); PHOSPHORUS 1.3 MG/DL (2.3-4.5); POTASSIUM 4.2 MMOL/L (3.5-5.1); SODIUM 139 MMOL/L (135-145); TOTAL CARBON DIOXIDE 15.1 MMOL/L (24-32); eGFR > 90 ML/MIN
[2018-06-20 23:00] VITALS: BP 143/97
[2018-06-21] VITALS (14 sets, daily range): BP systolic 107–142; BP diastolic 63–96
[2018-06-21] MEDS ORDERED: pantoprazole 40 MG vial IV ONE (00:25)
[2018-06-21 03:43] LABS: ALANINE AMINOTRANSFERASE 23 U/L (12-78); ALBUMIN 3.2 G/DL (3.4-5.0); ALBUMIN/GLOBULIN RATIO 1.1 (1.1-1.5); ALKALINE PHOSPHATASE 83 IU/L (46-116); ANION GAP 12 (8-16); ASPARTATE AMINO TRANSFERASE 11 U/L (10-37); BILIRUBIN,TOTAL 0.3 MG/DL (0.1-1.0); BLOOD UREA NITROGEN 16 MG/DL (7-18); CALCIUM 7.6 MG/DL (8.5-10.1); CHLORIDE 104 MMOL/L (99-107); CREATININE 0.94 MG/DL (0.60-1.10); GLUCOSE 115 MG/DL (70-104); MAGNESIUM 1.8 MG/DL (1.5-2.4); PHOSPHORUS 1.7 MG/DL (2.3-4.5); POTASSIUM 3.5 MMOL/L (3.5-5.1); SODIUM 138 MMOL/L (135-145); TOTAL CARBON DIOXIDE 22.2 MMOL/L (24-32); eGFR > 90 ML/MIN
[2018-06-21 03:49] LABS: BASOPHILS % (AUTO) 0.1 % (0-1); EOSINOPHILS # (AUTO) 0.2 X10'3 (0-0.9); EOSINOPHILS % (AUTO) 1.1 % (0-6); HEMATOCRIT 38.7 % (42.0-52.0); HEMOGLOBIN 12.6 g/dl (14.0-17.9); LYMPHOCYTES # (AUTO) 2.5 X10'3 (1.1-4.8); LYMPHOCYTES % (AUTO) 12.6 % (21-51); MEAN CORPUSCULAR HEMOGLOBIN 29.6 PG (27.0-31.0); MEAN CORPUSCULAR HGB CONC 32.7 % (33.0-36.5); MEAN CORPUSCULAR VOLUME 90.5 FL (78-98); MEAN PLATELET VOLUME 8.5 FL (7.4-10.4); MONOCYTES # (AUTO) 1.4 X10'3 (0-0.9); MONOCYTES % (AUTO) 6.8 % (2-12); NEUTROPHILS # (AUTO) 15.8 X10'3 (1.8-7.7); NEUTROPHILS % (AUTO) 79.4 % (42-75); PLATELET COUNT 368 X10'3 (140-440); RED BLOOD COUNT 4.27 X10'6 (4.70-6.10); RED CELL DISTRIBUTION WIDTH 14.1 % (11.5-14.5)
[2018-06-21] MEDS: dextrose 5%-1/2 normal saline 1,000 ML IV SCH ×2 (04:11→09:05)
[2018-06-21] MEDS: normal saline 1000ml 1,000 ML IV SCH ×2 (04:15→11:30)
[2018-06-21] MEDS: insulin regular, DKA only 100 UNIT in normal saline 100ml IV soln 99 ML IV SCH ×2 (04:17)
[2018-06-21] MEDS ORDERED: INSU100I31 SQ (05:03)
[2018-06-21] MEDS ORDERED: INSU100I39 SQ (05:03)
[2018-06-21] MEDS ORDERED: insulin regular, human 100 UNIT in normal saline 100ml IV soln 99 ML IV SCH ×2 (05:15)
[2018-06-21 07:57] LABS: ALANINE AMINOTRANSFERASE 20 U/L (12-78); ALBUMIN 3.1 G/DL (3.4-5.0); ALBUMIN/GLOBULIN RATIO 1.2 (1.1-1.5); ALKALINE PHOSPHATASE 77 IU/L (46-116); ANION GAP 14 (8-16); ASPARTATE AMINO TRANSFERASE 12 U/L (10-37); BILIRUBIN,TOTAL 0.4 MG/DL (0.1-1.0); BLOOD UREA NITROGEN 16 MG/DL (7-18); BUN/CREATININE RATIO 18.6 (5.4-32.0); CALCIUM 7.4 MG/DL (8.5-10.1); CHLORIDE 104 MMOL/L (99-107); CREATININE 0.86 MG/DL (0.60-1.10); GLUCOSE 184 MG/DL (70-104); MAGNESIUM 1.7 MG/DL (1.5-2.4); PHOSPHORUS 1.9 MG/DL (2.3-4.5); POTASSIUM 3.3 MMOL/L (3.5-5.1); SODIUM 137 MMOL/L (135-145); TOTAL CARBON DIOXIDE 19.1 MMOL/L (24-32); TOTAL PROTEIN 5.6 G/DL (6.4-8.2); eGFR > 90 ML/MIN
[2018-06-21] MEDS ORDERED: insulin glargine (Lantus) pen - multi-dose SQ SCH ×2 (08:00→20:00)
[2018-06-21] MEDS ORDERED: K and/or MAG REPLACEMENT MC SCH (08:00)
[2018-06-21] MEDS ORDERED: pantoprazole 40 MG vial IV SCH (08:00)
[2018-06-21] MEDS: docusate sod 100mg capsule PO SCH (08:00)
[2018-06-21] MEDS: heparin, porcine 5000 units/ml vial SQ SCH (08:04)
[2018-06-21] MEDS ORDERED: insulin Lispro (HumaLOG) vial - multi-dose SQ SCH ×2 (08:30→10:00)
== END 2018-06-21 15:10 | disposition home or self-care (01) | DRG 420 ==
LOC: ER 13:56 → ED HOLD 15:30 → ICU 2S 16:43
PROVIDERS: ADMIT Internal Medicine Critical Care Medicine; ATTEND Internal Medicine Critical Care Medicine
DX: E10.10 Type 1 diabetes mellitus with ketoacidosis without coma (principal); E87.5 Hyperkalemia; D72.829 Elevated white blood cell count, unspecified; F11.23 Opioid dependence with withdrawal; F17.210 Nicotine dependence, cigarettes, uncomplicated; Z79.4 Long term (current) use of insulin; Z88.0 Allergy status to penicillin; Z71.51 Drug abuse counseling and surveillance of drug abuser
CPT/HCPCS: 36415; 71045; 80048; 80053; 80076; 80305; 80320; 81001; 82948; 83735; 84100; 84145; 85025; 87040; 87070; 87077; 87186; 93005; 96365; 96375; 97161; 99291; C9113; J1170; J1644; J1815; J2405; J3480; J7030

== ENCOUNTER 2018-06-28 14:35 | Inpatient (IN) | payer MEDICAID ==
[~2018-06-28] VITALS: Ht 175.3 cm; Wt 61.1 kg
[~2018-06-28 14:35] MED LIST changes: -INSU100C10 SQ; +INSU100I31 SQ; +INSU100I39 SQ; -LANTUS SQ
[2018-06-28] MEDS ORDERED: insulin regular, human 10 units/0.1 ml syringe IV PRN (14:40)
[2018-06-28] MEDS ORDERED: normal saline 1000ML IV soln IV ONE (14:40)
[2018-06-28] MEDS: insulin regular, DKA only 100 UNIT in normal saline 100ml IV soln 99 ML IV SCH ×2 (15:03)
[2018-06-28 15:18] LABS: BASOPHILS # (AUTO) 0.4 X10'3 (0-0.2); BASOPHILS % (AUTO) 0.8 % (0-1); EOSINOPHILS # (AUTO) 0.1 X10'3 (0-0.9); EOSINOPHILS % (AUTO) 0.1 % (0-6); HEMATOCRIT 43.9 % (42.0-52.0); HEMOGLOBIN 13.6 g/dl (14.0-17.9); LYMPHOCYTES % (AUTO) 15.1 % (21-51); MEAN CORPUSCULAR HEMOGLOBIN 30.2 PG (27.0-31.0); MEAN CORPUSCULAR HGB CONC 31.1 % (33.0-36.5); MONOCYTES # (AUTO) 3.9 X10'3 (0-0.9); MONOCYTES % (AUTO) 8.4 % (2-12); NEUTROPHILS # (AUTO) 35.1 X10'3 (1.8-7.7); NEUTROPHILS % (AUTO) 75.6 % (42-75); PLATELET COUNT 557 X10'3 (140-440); RED BLOOD COUNT 4.52 X10'6 (4.70-6.10); RED CELL DISTRIBUTION WIDTH 15.9 % (11.5-14.5)
[2018-06-28 15:22] LABS: WHITE BLOOD COUNT 46.5 X10'3 (4.5-11.0)
[2018-06-28 15:35] LABS: ABG OXYGEN SATURATION 97.7 % (95-98); ABG PH (T) 6.917 (7.350-7.450); ABG PO2 (T) 158.1 mmHg (83-108); ALLEN'S TEST Positive; FMetHb 0.4 % (0.3-1.12); FO2Hb 97.3 % (94-100); TOTAL HEMOGLOBIN 13.6 G/dl (14.0-18.0)
[2018-06-28] MEDS ORDERED: CefTRIAXone 2gm/D5W 50ml 50 ML IV ONE (15:35)
[2018-06-28] MEDS ORDERED: vancomycin/NS 1 GM ADD-VANTAGE 250 ML IV ONE (15:35)
[2018-06-28 15:40] LABS: ANISOCYTOSIS 1+; PLATELET ESTIMATE INCREASED; TOTAL CELLS COUNTED 100
[2018-06-28 15:41] LABS: ALANINE AMINOTRANSFERASE 56 U/L (12-78); ALBUMIN/GLOBULIN RATIO 1.1 (1.1-1.5); ALKALINE PHOSPHATASE 192 IU/L (46-116); ASPARTATE AMINO TRANSFERASE 28 U/L (10-37); BILIRUBIN,TOTAL 0.6 MG/DL (0.1-1.0); BLOOD UREA NITROGEN 36 MG/DL (7-18); BUN/CREATININE RATIO 21.1 (5.4-32.0); CALCIUM 9.9 MG/DL (8.5-10.1); CHLORIDE 86 MMOL/L (99-107); CREATININE 1.71 MG/DL (0.60-1.10); ETHANOL < 0.010 GM/DL (0.0-0.010); MAGNESIUM 3.7 MG/DL (1.5-2.4); SODIUM 129 MMOL/L (135-145); TOTAL PROTEIN 7.8 G/DL (6.4-8.2); eGFR 50 ML/MIN
[2018-06-28] MEDS ORDERED: sodium bicarbonate (0.9mEq/ml) 44.6 mEq/50ml syringe IV ONE (15:45)
[2018-06-28] MEDS ORDERED: sodium bicarbonate (8.4%) 1 mEq/ml syringe IV ONE ×2 (15:45→15:55)
[2018-06-28] MEDS ORDERED: sodium bicarbonate (8.4%) inj. 150 MEQ in normal saline 1000ml 900 ML IV SCH (15:45)
[2018-06-28 15:54] LABS: ANION GAP 38 (8-16); GLUCOSE 1071 MG/DL (70-104); POTASSIUM 6.8 MMOL/L (3.5-5.1); TOTAL CARBON DIOXIDE < 5 MMOL/L (24-32)
[2018-06-28] MEDS ORDERED: sodium phosphate inj. 15 MMOL in dextrose 5%-water 150 ML IV PRN (15:55)
[2018-06-28] MEDS ORDERED: magnesium hydroxide 30ml (MOM) UD suspension PO PRN (15:55)
[2018-06-28] MEDS ORDERED: magnesium 1gm/100ml D5W IVPB 100 ML IV PRN (15:55)
[2018-06-28] MEDS ORDERED: ipratropium/albuterol 3ml nebule NEB PRN (15:55)
[2018-06-28] MEDS ORDERED: morphine 2 MG/ML inj. syringe IV PRN (15:55)
[2018-06-28] MEDS ORDERED: acetaminophen 325mg tablet PO PRN ×2 (15:55)
[2018-06-28] MEDS ORDERED: calcium chloride 100 MG/1 ML inj IV ONE (15:55)
[2018-06-28] MEDS ORDERED: sodium bicarbonate (8.4%) inj. 150 MEQ in normal saline 1000ml 900 ML IV ONE (15:55)
[2018-06-28] MEDS ORDERED: ondansetron/PF 4mg/2ml inj IV PRN (15:55)
[2018-06-28] MEDS ORDERED: potassium Cl 40MEQ/NS 500ml 500 ML IV PRN ×3 (15:55→16:05)
[2018-06-28] MEDS ORDERED: magnesium Cl slow-release 64mg tablet PO PRN (15:55)
[2018-06-28] MEDS ORDERED: furosemide 40mg/4ml inj IV ONE (15:55)
[2018-06-28] MEDS ORDERED: potassium Cl 20 mEq SR tablet PO PRN ×3 (15:55→16:05)
[2018-06-28] MEDS ORDERED: sodium phosphate inj. 30 MMOL in dextrose 5%-water 250 ML IV PRN (15:55)
[2018-06-28] MEDS ORDERED: morphine 4 MG/ML inj SYRINge IV PRN (15:55)
[2018-06-28] MEDS ORDERED: magnesium 4gm in 100ml NS 100 ML IV PRN (15:55)
[2018-06-28 15:57] LABS: CLARITY,URINE CLEAR (Clear); COLOR,URINE YELLOW (Yellow); GLUCOSE, URINE >=1000 mg/dl (Neg); KETONES,URINE >=80 mg/dl (Neg); LEUKOCYTE ESTERASE ,URINE NEGATIVE (Neg); NITRITES, URINE NEGATIVE (Neg); OCCULT BLOOD,URINE SMALL (Neg); PROTEIN,URINE TRACE mg/dl (Neg); UROBILINOGEN,URINE 0.2 E.U/dL (0.2-1.0)
[2018-06-28 16:01] LABS: UA COLLECTION TYPE FOLEY CATH
[2018-06-28] MEDS ORDERED: sodium bicarbonate (8.4%) inj. 100 MEQ in dextrose 5% water 500ml 500 ML IV PRN (16:01)
[2018-06-28] MEDS ORDERED: insulin regular, DKA only 100 UNIT in normal saline 100ml IV soln 99 ML IV SCH ×2 (16:01)
[2018-06-28] MEDS ORDERED: sodium bicarbonate (8.4%) inj. 50 MEQ in dextrose 5% water 500ml 250 ML IV PRN (16:01)
[2018-06-28] MEDS ORDERED: insulin regular, human vial - multi-dose IV PRN (16:05)
[2018-06-28 16:09] LABS: RBC,URINE 0-2 /HPF (0-2)
[2018-06-28 16:10] LABS: AMORPHOUS URATES 2+; BACTERIA,URINE FEW /HPF (Neg); SQUAMOUS EPITHELIAL CELL,UR FEW /LPF (FEW)
[2018-06-28 16:15] LABS: URINE AMPHETAMINE SCREEN NEGATIVE (Neg); URINE BARBITUATE SCREEN NEGATIVE (Neg); URINE BENZODIAZEPINES SCREEN NEGATIVE (Neg); URINE CANNABINOID SCREEN POSITIVE (Neg); URINE COCAINE SCREEN NEGATIVE (Neg); URINE METHADONE SCREEN NEGATIVE (Neg); URINE OPIATE SCREEN POSITIVE (Neg); URINE PHENCYCLIDINE SCREEN NEGATIVE (Neg)
[2018-06-28 16:45] LABS: ALBUMIN 3.2 G/DL (3.4-5.0); BLOOD UREA NITROGEN 32 MG/DL (7-18); BUN/CREATININE RATIO 20.9 (5.4-32.0); CALCIUM 7.2 MG/DL (8.5-10.1); CHLORIDE 96 MMOL/L (99-107); CREATININE 1.53 MG/DL (0.60-1.10); SODIUM 137 MMOL/L (135-145); eGFR 57 ML/MIN
[2018-06-28 16:51] LABS: ANION GAP 36 (8-16); POTASSIUM 4.1 MMOL/L (3.5-5.1)
[2018-06-28 16:52] LABS: GLUCOSE 797 MG/DL (70-104)
[2018-06-28 16:53] LABS: TOTAL CARBON DIOXIDE < 5 MMOL/L (24-32)
[2018-06-28 17:00] LABS: HIV ANTIBODY 1&2 RAPID NON-REACTIVE (Neg)
[2018-06-28] MEDS: normal saline 1000ml 1,000 ML IV SCH ×3 (17:00→20:01)
[2018-06-28 19:00] VITALS: BP 140/90
[2018-06-28] MEDS: cefepime 1GM/NS ADD-VANTAGE 100 ML IV SCH (19:53)
[2018-06-28 20:00] VITALS: BP 140/96
[2018-06-28] MEDS: heparin, porcine 5000 units/ml vial SQ SCH (20:10)
[2018-06-28 21:00] VITALS: BP 134/84
[2018-06-28 21:03] LABS: ALBUMIN 3.4 G/DL (3.4-5.0); ANION GAP 28 (8-16); BLOOD UREA NITROGEN 27 MG/DL (7-18); BUN/CREATININE RATIO 23.3 (5.4-32.0); CHLORIDE 103 MMOL/L (99-107); CREATININE 1.16 MG/DL (0.60-1.10); GLUCOSE 416 MG/DL (70-104); PHOSPHORUS 2.5 MG/DL (2.3-4.5); SODIUM 146 MMOL/L (135-145); TOTAL CARBON DIOXIDE 15.1 MMOL/L (24-32); eGFR 79 ML/MIN
[2018-06-28 22:00] VITALS: BP 136/91
[2018-06-28 23:00] VITALS: BP 131/83
[2018-06-28] MEDS: potassium CL 20mEq in D5-1/2NS 1,000 ML IV PRN (23:08)
[2018-06-29] VITALS (23 sets, daily range): BP systolic 121–145; BP diastolic 71–97
[2018-06-29] LABS: ABG BASE EXCESS 3.4 mmol/L (-2.0-3.0); ABG OXYGEN SATURATION 96.4 % (95-98); ABG PCO2 (T) 37.2 mmHg (35.0-48.0); ABG PH (T) 7.478 (7.350-7.450); ABG PO2 (T) 80.6 mmHg (83-108); FCOHb 0.3 % (0.5-1.5); FMetHb 0.2 % (0.3-1.12); FO2Hb 95.9 % (94-100); TOTAL HEMOGLOBIN 12.9 G/dl (14.0-18.0)
[2018-06-29] MEDS: normal saline 1000ml 1,000 ML IV SCH ×6 (00:01→20:01)
[2018-06-29] MEDS: cefepime 1GM/NS ADD-VANTAGE 100 ML IV SCH ×3 (02:30→16:09)
[2018-06-29 05:06] LABS: BASOPHILS % (AUTO) 0.2 % (0-1); EOSINOPHILS % (AUTO) 0.2 % (0-6); HEMATOCRIT 33.6 % (42.0-52.0); HEMOGLOBIN 11.4 g/dl (14.0-17.9); LYMPHOCYTES # (AUTO) 1.2 X10'3 (1.1-4.8); LYMPHOCYTES % (AUTO) 10.9 % (21-51); MEAN CORPUSCULAR HEMOGLOBIN 30.2 PG (27.0-31.0); MEAN CORPUSCULAR HGB CONC 33.8 % (33.0-36.5); MEAN CORPUSCULAR VOLUME 89.3 FL (78-98); MEAN PLATELET VOLUME 8.1 FL (7.4-10.4); MONOCYTES # (AUTO) 1.5 X10'3 (0-0.9); MONOCYTES % (AUTO) 13.3 % (2-12); NEUTROPHILS # (AUTO) 8.6 X10'3 (1.8-7.7); NEUTROPHILS % (AUTO) 75.4 % (42-75); PLATELET COUNT 367 X10'3 (140-440); RED BLOOD COUNT 3.77 X10'6 (4.70-6.10); RED CELL DISTRIBUTION WIDTH 14.4 % (11.5-14.5); WHITE BLOOD COUNT 11.4 X10'3 (4.5-11.0)
[2018-06-29 05:30] LABS: ALANINE AMINOTRANSFERASE 42 U/L (12-78); ALBUMIN 2.9 G/DL (3.4-5.0); ALBUMIN/GLOBULIN RATIO 0.9 (1.1-1.5); ALKALINE PHOSPHATASE 87 IU/L (46-116); ANION GAP 8 (8-16); ASPARTATE AMINO TRANSFERASE 20 U/L (10-37); BILIRUBIN,TOTAL 0.4 MG/DL (0.1-1.0); BLOOD UREA NITROGEN 20 MG/DL (7-18); BUN/CREATININE RATIO 22.2 (5.4-32.0); CALCIUM 8.1 MG/DL (8.5-10.1); CHLORIDE 112 MMOL/L (99-107); GLUCOSE 160 MG/DL (70-104); MAGNESIUM 1.9 MG/DL (1.5-2.4); PHOSPHORUS 2.4 MG/DL (2.3-4.5); POTASSIUM 3.5 MMOL/L (3.5-5.1); SODIUM 149 MMOL/L (135-145); TOTAL CARBON DIOXIDE 29.3 MMOL/L (24-32); eGFR > 90 ML/MIN
[2018-06-29 05:35] LABS: TOTAL CELLS COUNTED 100
[2018-06-29 05:36] LABS: PLATELET ESTIMATE NORMAL
[2018-06-29] MEDS: potassium CL 20mEq in D5-1/2NS 1,000 ML IV PRN ×3 (06:16→15:12)
[2018-06-29] MEDS: K and/or MAG REPLACEMENT MC SCH (08:00)
[2018-06-29] MEDS: pantoprazole 40 MG vial IV SCH (09:25)
[2018-06-29] MEDS: heparin, porcine 5000 units/ml vial SQ SCH ×2 (09:31→20:12)
[2018-06-29] MEDS: insulin regular, DKA only 100 UNIT in normal saline 100ml IV soln 99 ML IV SCH ×2 (10:38)
[2018-06-29] MEDS ORDERED: MESSAGE TO PHARMACY PO ONE (15:15)
[2018-06-29] MEDS ORDERED: glucagon, human recombinant 1mg kit SUBCUT PRN (15:15)
[2018-06-29] MEDS ORDERED: dextrose ORAL solution 15 GM/59 ML bottle PO PRN (15:15)
[2018-06-29] MEDS ORDERED: dextrose 50%-water 50ml dispensing syringe IV PRN ×2 (15:15)
[2018-06-29] MEDS: insulin Lispro (HumaLOG) vial - multi-dose SQ SCH ×2 (16:36→19:37)
[2018-06-29 16:42] LABS: POTASSIUM 3.7 MMOL/L (3.5-5.1)
[2018-06-29 20:10] LABS: ALANINE AMINOTRANSFERASE 40 U/L (12-78); ALBUMIN 2.6 G/DL (3.4-5.0); ALBUMIN/GLOBULIN RATIO 0.9 (1.1-1.5); ALKALINE PHOSPHATASE 80 IU/L (46-116); ANION GAP 14 (8-16); ASPARTATE AMINO TRANSFERASE 21 U/L (10-37); BILIRUBIN,TOTAL 0.3 MG/DL (0.1-1.0); BLOOD UREA NITROGEN 17 MG/DL (7-18); BUN/CREATININE RATIO 18.3 (5.4-32.0); CALCIUM 7.8 MG/DL (8.5-10.1); CHLORIDE 103 MMOL/L (99-107); CREATININE 0.93 MG/DL (0.60-1.10); GLUCOSE 323 MG/DL (70-104); SODIUM 137 MMOL/L (135-145); TOTAL CARBON DIOXIDE 19.9 MMOL/L (24-32); TOTAL PROTEIN 5.5 G/DL (6.4-8.2); eGFR > 90 ML/MIN
[2018-06-29] MEDS: lactobacillus rhamnosus 10,000 MMU CELLS/CAPSULE PO SCH (20:11)
[2018-06-29 20:23] LABS: PHOSPHORUS 1.3 MG/DL (2.3-4.5)
[2018-06-29 20:24] LABS: MAGNESIUM 1.8 MG/DL (1.5-2.4)
[2018-06-29 23:10] LABS: ALANINE AMINOTRANSFERASE 40 U/L (12-78); ALBUMIN 2.7 G/DL (3.4-5.0); ALBUMIN/GLOBULIN RATIO 0.9 (1.1-1.5); ALKALINE PHOSPHATASE 86 IU/L (46-116); ANION GAP 7 (8-16); ASPARTATE AMINO TRANSFERASE 23 U/L (10-37); BILIRUBIN,TOTAL 0.2 MG/DL (0.1-1.0); BLOOD UREA NITROGEN 14 MG/DL (7-18); BUN/CREATININE RATIO 22.6 (5.4-32.0); CALCIUM 7.8 MG/DL (8.5-10.1); CHLORIDE 107 MMOL/L (99-107); CREATININE 0.62 MG/DL (0.60-1.10); GLUCOSE 91 MG/DL (70-104); MAGNESIUM 1.7 MG/DL (1.5-2.4); PHOSPHORUS 1.6 MG/DL (2.3-4.5); POTASSIUM 3.3 MMOL/L (3.5-5.1); SODIUM 143 MMOL/L (135-145); TOTAL CARBON DIOXIDE 29.4 MMOL/L (24-32); TOTAL PROTEIN 5.6 G/DL (6.4-8.2); eGFR > 90 ML/MIN
[2018-06-29] MEDS ORDERED: potassium Cl 20 mEq SR tablet PO PRN ×2 (23:40)
[2018-06-30] VITALS (16 sets, daily range): BP systolic 98–138; BP diastolic 61–102
[2018-06-30] MEDS: potassium Cl 20 mEq SR tablet PO PRN ×2 (00:01→05:52)
[2018-06-30] MEDS: normal saline 1000ml 1,000 ML IV SCH ×5 (00:01→14:30)
[2018-06-30] MEDS: insulin glargine (Lantus) pen - multi-dose SQ SCH ×2 (00:04→21:41)
[2018-06-30] MEDS: cefepime 1GM/NS ADD-VANTAGE 100 ML IV SCH ×2 (00:07→08:12)
[2018-06-30 06:01] LABS: BASOPHILS % (AUTO) 0.4 % (0-1); EOSINOPHILS % (AUTO) 0.4 % (0-6); HEMATOCRIT 32.8 % (42.0-52.0); LYMPHOCYTES % (AUTO) 24.3 % (21-51); MEAN CORPUSCULAR HEMOGLOBIN 30.4 PG (27.0-31.0); MEAN CORPUSCULAR HGB CONC 33.4 % (33.0-36.5); MEAN CORPUSCULAR VOLUME 91.1 FL (78-98); MEAN PLATELET VOLUME 8.2 FL (7.4-10.4); MONOCYTES # (AUTO) 0.8 X10'3 (0-0.9); MONOCYTES % (AUTO) 9.9 % (2-12); NEUTROPHILS # (AUTO) 5.4 X10'3 (1.8-7.7); PLATELET COUNT 254 X10'3 (140-440); RED CELL DISTRIBUTION WIDTH 14.9 % (11.5-14.5); WHITE BLOOD COUNT 8.4 X10'3 (4.5-11.0)
[2018-06-30 06:06] LABS: ALANINE AMINOTRANSFERASE 38 U/L (12-78); ALBUMIN 2.6 G/DL (3.4-5.0); ALBUMIN/GLOBULIN RATIO 0.9 (1.1-1.5); ALKALINE PHOSPHATASE 89 IU/L (46-116); ANION GAP 6 (8-16); ASPARTATE AMINO TRANSFERASE 28 U/L (10-37); BILIRUBIN,TOTAL 0.4 MG/DL (0.1-1.0); BLOOD UREA NITROGEN 16 MG/DL (7-18); BUN/CREATININE RATIO 27.1 (5.4-32.0); CALCIUM 7.6 MG/DL (8.5-10.1); CHLORIDE 103 MMOL/L (99-107); CREATININE 0.59 MG/DL (0.60-1.10); GLUCOSE 282 MG/DL (70-104); MAGNESIUM 1.8 MG/DL (1.5-2.4); PHOSPHORUS 1.6 MG/DL (2.3-4.5); POTASSIUM 4.2 MMOL/L (3.5-5.1); SODIUM 138 MMOL/L (135-145); TOTAL CARBON DIOXIDE 29.3 MMOL/L (24-32); TOTAL PROTEIN 5.5 G/DL (6.4-8.2); eGFR > 90 ML/MIN
[2018-06-30] MEDS: insulin regular, DKA only 100 UNIT in normal saline 100ml IV soln 99 ML IV SCH ×2 (06:38)
[2018-06-30 07:22] LABS: HBSAG SCREEN Negative (Negative); HEPATITIS C ANTIBODY <0.1 s/co ratio (0.0-0.9)
[2018-06-30] MEDS: K and/or MAG REPLACEMENT MC SCH (08:00)
[2018-06-30] MEDS: pantoprazole 40 MG vial IV SCH (08:12)
[2018-06-30] MEDS: lactobacillus rhamnosus 10,000 MMU CELLS/CAPSULE PO SCH ×2 (08:13→20:23)
[2018-06-30] MEDS: heparin, porcine 5000 units/ml vial SQ SCH ×2 (08:14→20:24)
[2018-06-30] MEDS: insulin Lispro (HumaLOG) vial - multi-dose SQ SCH ×3 (08:35→17:52)
[2018-06-30] MEDS: Neutra Phos packet PO PRN ×3 (08:37→17:16)
[2018-06-30] MEDS: dextrose ORAL solution 15 GM/59 ML bottle PO PRN ×2 (20:15→20:36)
[2018-07-01 03:00] VITALS: BP 119/85
[2018-07-01 07:00] VITALS: BP 123/85
[2018-07-01 07:01] LABS: BASOPHILS % (AUTO) 0.2 % (0-1); EOSINOPHILS % (AUTO) 0.2 % (0-6); HEMATOCRIT 34.8 % (42.0-52.0); HEMOGLOBIN 11.5 g/dl (14.0-17.9); LYMPHOCYTES # (AUTO) 1.7 X10'3 (1.1-4.8); LYMPHOCYTES % (AUTO) 29.1 % (21-51); MEAN CORPUSCULAR HEMOGLOBIN 30.4 PG (27.0-31.0); MEAN CORPUSCULAR HGB CONC 32.9 % (33.0-36.5); MEAN CORPUSCULAR VOLUME 92.3 FL (78-98); MEAN PLATELET VOLUME 7.9 FL (7.4-10.4); MONOCYTES # (AUTO) 0.5 X10'3 (0-0.9); MONOCYTES % (AUTO) 7.7 % (2-12); NEUTROPHILS # (AUTO) 3.8 X10'3 (1.8-7.7); NEUTROPHILS % (AUTO) 62.8 % (42-75); PLATELET COUNT 256 X10'3 (140-440); RED BLOOD COUNT 3.77 X10'6 (4.70-6.10); RED CELL DISTRIBUTION WIDTH 14.9 % (11.5-14.5)
[2018-07-01 07:13] LABS: ALBUMIN 2.6 G/DL (3.4-5.0); ANION GAP 5 (8-16); BILIRUBIN,TOTAL 0.4 MG/DL (0.1-1.0); BLOOD UREA NITROGEN 18 MG/DL (7-18); BUN/CREATININE RATIO 35.3 (5.4-32.0); CALCIUM 8.3 MG/DL (8.5-10.1); CHLORIDE 102 MMOL/L (99-107); CREATININE 0.51 MG/DL (0.60-1.10); GLUCOSE 271 MG/DL (70-104); MAGNESIUM 1.9 MG/DL (1.5-2.4); PHOSPHORUS 2.2 MG/DL (2.3-4.5); POTASSIUM 3.9 MMOL/L (3.5-5.1); SODIUM 137 MMOL/L (135-145); TOTAL CARBON DIOXIDE 30.4 MMOL/L (24-32); TOTAL PROTEIN 5.5 G/DL (6.4-8.2); eGFR > 90 ML/MIN
[2018-07-01 07:14] LABS: ALANINE AMINOTRANSFERASE 40 U/L (12-78); ALBUMIN/GLOBULIN RATIO 0.9 (1.1-1.5); ALKALINE PHOSPHATASE 108 IU/L (46-116); ASPARTATE AMINO TRANSFERASE 32 U/L (10-37)
[2018-07-01] MEDS: K and/or MAG REPLACEMENT MC SCH (07:42)
[2018-07-01] MEDS: heparin, porcine 5000 units/ml vial SQ SCH (09:01)
[2018-07-01] MEDS: pantoprazole 40 MG vial IV SCH (09:01)
[2018-07-01] MEDS: lactobacillus rhamnosus 10,000 MMU CELLS/CAPSULE PO SCH (09:02)
[2018-07-01] MEDS: insulin Lispro (HumaLOG) vial - multi-dose SQ SCH (09:05)
[2018-07-03 08:32] LABS: ABG PCO2 (T) < 10.0 mmHg (35.0-48.0)
== END 2018-07-01 10:30 | disposition home or self-care (01) | DRG 720 ==
LOC: ER 14:36 → ED HOLD 15:53 → ICU 2S 18:54 → PCU 3S 06-30 15:20
PROVIDERS: ADMIT Internal Medicine Critical Care Medicine; ATTEND Internal Medicine Critical Care Medicine
DX: A41.9 Sepsis, unspecified organism (principal); G93.41 Metabolic encephalopathy; E87.4 Mixed disorder of acid-base balance; E10.10 Type 1 diabetes mellitus with ketoacidosis without coma; N17.9 Acute kidney failure, unspecified; E87.1 Hypo-osmolality and hyponatremia; E87.5 Hyperkalemia; F11.20 Opioid dependence, uncomplicated; F12.10 Cannabis abuse, uncomplicated; F17.200 Nicotine dependence, unspecified, uncomplicated; Z79.4 Long term (current) use of insulin; Z88.0 Allergy status to penicillin; Z91.14 Patient's other noncompliance with medication regimen; Z79.899 Other long term (current) drug therapy
CPT/HCPCS: 36415; 36600; 71045; 80048; 80053; 80305; 80320; 81001; 82803; 82948; 83605; 83735; 84100; 84145; 84443; 85018; 85025; 86703; 86803; 87040; 87070; 87088; 87340; 93005; 93308; 96365; 96376; 97116; 97161; 99291; C9113; G0378; J0692; J0696; J1644; J1815; J1940; J2405; J3370; J7030